=== PATIENT | female | born 1985 | race African-American/Black ===

== ENCOUNTER 2017-09-17 20:34 | Emergency (ER) | payer MEDICAID, SELFPAY ==
[2017-09-17] MEDS ORDERED: Lidocaine Viscous Sol 2% 15 ml UD Cup ONE (21:11)
[2017-09-17] MEDS ORDERED: Famotidine 20 MG TAB ONE (21:11)
[2017-09-17] MEDS ORDERED: Mag-Al 1200 mg/1200 mg/30 ML UDCUP ONE (21:11)
[2017-09-17 21:40] LABS: #Basophils 0.1 thou/uL (0.0-0.2); #Eosinphils 0.1 thou/uL (0.0-0.7); #Monocytes 0.3 thou/uL (0.11-0.59); #Neutrophils 2.8 thou/uL (1.40-6.50); %Basophils 1.2 % (0.0-1.0); %Eosinophils 1.3 % (0.0-10.0); %Lymphocytes 23.2 % (21.0-51.0); %Neutrophils 66.2 % (42.0-75.0); Hemoglobin 12.6 g/dL (12.0-16.0); Mean Corpuscular HGB CONC 32.6 g/dL (32.0-36.0); Mean Corpuscular Hemoglobin 28.5 pg (27.0-31.0); Mean Corpuscular Volume 87.2 fl (81.0-99.0); Platelet Count 256 thou/uL (130-400); RBC Distribution Width 11.2 % (11.5-14.5); Red Blood Cell (RBC) Count 4.41 mill/uL (4.20-5.40); White Blood Cell (WBC) Count 4.2 thou/uL (4.8-10.8)
[2017-09-17 21:55] LABS: ALT (SGPT) 10 U/L (8-55); AST (SGOT) 13 U/L (5-34); Albumin 3.9 g/dL (3.5-5.0); Alkaline Phosphatase 57 U/L (40-150); Anion Gap 11 mmol/L (10-20); BUN (Urea Nitrogen) 9 mg/dL (7.0-18.7); Bilirubin, Total 0.3 mg/dL (0.2-1.2); Calc. Creatinine Clearance 0 mL/min (70-130); Calcium 8.4 mg/dL (7.8-10.44); Carbon Dioxide 22 mmol/L (22-29); Chloride 109 mmol/L (98-107); Estimated GFR-MDRD Greater than 90; Globulin 2.8 g/dL (2.4-3.5); Glucose 81 mg/dL (70-105); Lipase 31 U/L (8-78); Protein, Total 6.7 g/dL (6.0-8.3); Sodium 138 mmol/L (136-145)
[2017-09-17 22:04] LABS: Troponin I Less than 0.010 ng/mL (< 0.028)
== END 2017-09-17 22:20 | disposition home or self-care (01) ==
LOC: ERS 20:34
DX: K20.9 Esophagitis, unspecified (principal); Z79.899 Other long term (current) drug therapy
CPT/HCPCS: 36415; 80053; 83605; 83690; 84484; 85025; 93005

== ENCOUNTER 2018-04-19 14:17 | Emergency (ER) | payer MEDICAID, OTHER ==
--- NOTE | 2018-04-19 15:27 | RAD ---
2 VIEWS CHEST: Date: 04/19/18 HISTORY: Cough. FINDINGS: PA and lateral views of chest obtained. The lungs are well aerated. No evidence of active intrathorac ic disease seen. No evidence of effusions, pneumonia, or pneumothorax seen. IMPRESSION: Normal 2 views chest. POS: [facility]
== END 2018-04-19 15:45 | disposition home or self-care (01) ==
LOC: ERS 14:17
DX: R05 Cough (principal); E53.8 Deficiency of other specified B group vitamins; E55.9 Vitamin D deficiency, unspecified; Z79.899 Other long term (current) drug therapy
CPT/HCPCS: 71046; 94640; J7620

== ENCOUNTER 2019-01-23 17:34 | Emergency (ER) | payer OTHER, SELFPAY | END 2019-01-23 17:55 | disposition home or self-care (01) | LOC: ERS 17:34 | DX: K08.89 Other specified disorders of teeth and supporting structures (principal) | CPT/HCPCS: 99282 ==

== ENCOUNTER 2019-05-26 20:30 | Emergency (ER) | payer SELFPAY | END 2019-05-26 21:35 | disposition home or self-care (01) | LOC: ERS 20:30 | DX: K64.4 Residual hemorrhoidal skin tags (principal); Z79.899 Other long term (current) drug therapy | CPT/HCPCS: 99282 ==

== ENCOUNTER 2020-01-16 17:01 | Emergency (ER) | payer OTHER, SELFPAY ==
[2020-01-17 12:56] LABS: SARS-CoV-2 MS2 Positive; SARS-CoV-2 N Gene Negative; SARS-CoV-2 S Gene Negative; SARS-CoV-2 by NAA Not Detected (NotDetected); SARS-CoV-2 orf1ab Negative
== END 2020-01-16 17:09 | disposition home or self-care (01) ==
LOC: ERS 17:01
DX: R06.02 Shortness of breath (principal); R50.9 Fever, unspecified; R53.83 Other fatigue; Z20.828 Contact with and (suspected) exposure to other viral communicable diseases
CPT/HCPCS: 87635; 99284; U0003

== ENCOUNTER 2022-12-11 22:01 | Emergency (ER) | payer MEDICAID, OTHER, SELFPAY | END 2022-12-12 03:33 | disposition left against medical advice (07) | LOC: ERS 22:01 | DX: Z53.21 Procedure and treatment not carried out due to patient leaving prior to being seen by health care provider (principal) ==